=== PATIENT | male | born 1970 | race African-American/Black ===

== ENCOUNTER 2019-12-06 07:26 | Observation (INO) | payer BC, SELFPAY ==
--- NOTE | ~2019-12-06 | CT_ITS ---
EXAMINATION: CT lumbar spine wo jayla EXAM DATE: 12/06/2019 07:59 INDICATION: Fall, low back pain. TECHNIQUE: Spiral CT lumbar spine was performed without contrast. Axial, coronal and sagittal images were reviewed. The dose-length product (DLP) for this examination was 605.92 mGy-cm. The exposure w as tailored according to patient size (auto mA exposure control), and iterative reconstruction (ASIR) was used as additional dose reduction technique. There is no prior study for comparison. FINDINGS: There is moderate to severe L4-5, moderate L5-S1 facet arthropathy, with moderate L4-5 domonique ateral neural foraminal stenosis and moderate left L5-S1 neural foraminal stenosis. Lesser stenosis a t other levels. Mild to moderate L4-5 disc disease, mild at other lumbar levels. There is no evidenc e of acute lumbar fracture or spondylolysis. There is no disc space widening or traumatic vertebral body subluxation suspected. Paraspinal soft tissue is unremarkable. Vertebral body and disc heights are well-maintained. There is 3 mm retrolisthesis L5 on S1. The vertebral bodies are otherwise align ed. 3 mm left calyceal stone. A detailed level by level evaluation of spondylosis can be added as add endum if requested. IMPRESSION: 1. No acute lumbar fracture. 2. [id number] lumbar spondylosis. 3. Left nephrolithiasis. Reviewed, dictated and finalized at location B. M AGENT IMPRESSION: 1. No acute lumbar fracture. 2. [id number]-[id number] lumbar spondylosis. 3. Left nephrolithiasis.
--- NOTE | ~2019-12-06 | XR_ITS ---
EXAMINATION: XR hip LT 2V w AP pelvis DATE: 12/06/2019 08:09 INDICATION: Left hip pain post fall TECHNIQUE: Anteroposterior view of the pelvis and anteroposterior and cross-table lateral views of th e left hip were obtained. COMPARISON: None. FINDINGS: Alignment is normal. No fracture. Bilateral hip joint spaces are normal. Left os acetabulum. Mild to moderate lower lumbar spondylosis. Normal bowel gas pattern. Soft tissues are unremarkable. IMPRESSION: 1. No acute osseous abnormality. Reviewed, dictated and finalized at location A. [facility]
--- NOTE | ~2019-12-06 | CT_ITS ---
EXAMINATION: CT pelvis wo con DATE: 12/06/2019 11:06 INDICATION: Left hip pain. Fall. TECHNIQUE: Computed tomography (CT) of the pelvis was performed without intravenous contrast. Automat ed exposure control and iterative reconstruction technique were employed. The dose-length product was 288.78 mGy-cm. COMPARISON: None FINDINGS: There are no dilated loops of bowel. There is a left inguinal hernia containing fat. There are no pathologically enlarged lymph nodes. There is no free intraperitoneal fluid. There is a lipoma in left adductor arline muscle. Bone alignment is normal. No fracture. There are os acetabuli on the left. There is mild osteoarthritis of the hips. There is moderate lumbar spondylosis. IMPRESSION: 1. Mild osteoarthritis of the hips. 2. Left inguinal hernia containing fat. Reviewed, dictated and finalized at location A. BALL PLAYER
--- NOTE | 2019-12-06 07:43 | ED.ABDPAIN ---
HPI - Abdominal Pain General Chief Complaint: Back Pain/Injury Stated Complaint: fall/leg weakness Time Seen by Provider: 12/06/19 07:33 Source: RN notes reviewed History of Present Illness HPI narrative: Patient presents emergency department from home for a fall. Patient states approximately 6 AM this morning he was getting up to use restroom when he slipped and fell landing on his left side. He states that he has a history of chronic back pain and since that time is had increased back pain in his lower back as well as pain in his left hip. Patient denies striking his head or having loss of consciousness. He denies any other trauma or injury. Patient states he has a history of spinal stenosis and has intermittent numbness in his toes which is unchanged from today. He denies any bowel or bladder incontinence denies any head injury loss of consciousness vision changes chest pain, shortness of breath abdominal pain nausea vomiting or any other symptoms at this time. Related Data Allergies Allergy/AdvReac Type Severity Reaction Status Date / Time No Known Allergies Allergy Verified 12/06/19 08:29 Review of Systems Review of Systems: Narrative: Gen.: Denies fevers or chills Eyes: Denies eye pain or visual change ENT: Denies congestion Respiratory: Denies shortness of breath or cough CV: Denies chest pain or palpitations GI: Denies abdominal pain nausea, emesis or diarrhea denies bowel or bladder incontinence Musculoskeletal: See HPI Neuro: Denies numbness, tingling, weakness or focal weakness Skin: Denies rash Except as documented, all other systems reviewed and negative PMFSH Past Medical History Medical History (Updated 12/06/19 @ 14:16 by Jesus Carey DO) Hypertension Spinal stenosis Social History Social History (Updated 12/06/19 @ 07:44 by Jesus Carey DO) Smoking packs per day: 0.5 Smoking cigarettes per day: 10.0 Gender identity (if verbalized by the patient): Male Exam Narrative: Exam Narrative: APPEARANCE: Well appearing, no apparent distress, well-nourished. HEENT: normocephalic atraumtaic. No facial tenderness EYES: PERRL NECK: Supple. No midline tenderness to palpation. Full range of motion without pain RESPIRATORY: No respiratory distress. Clear to auscultation bilaterally CARDIOVASCULAR: Regular rate and rhythm without murmurs rubs or gallops. ABDOMINAL: Soft, nontender, nondistended, no rebound or guarding MUSCULOSKELETAl: Moves all extremities. No tenderness to palpation of bilateral upper and right lower extremities. No clubbing cyanosis or edema. Tender to palpation over left lateral and anterior hip, pain with any movement of the hip, no tenderness of the left knee or ankle, dorsalis pedis pulse 2+, neurovascular intact Back: No midline thoracic or lumbar tenderness to palpation tender palpation over left paravertebral muscles L3-5 Pelvis: Stable, nontender NEURO: Awake and alert ?3. Follows commands. Speech normal. No focal deficits. Normal pinprick sensation in the bilateral lower extremities SKIN:: Warm, dry. Normal Color Course Course Emergency Course: Several attempts made to get patient up and ambulating unable to ambulate secondary to pain in left lower back. Patient was given pain medication after initial attempt and again still unable to get up and ambulate Discussed Dr. Arroyo presentation work-up he agrees with admission at this time Discussed with patient and family results of workup and diagnosis. Discussed need for admission. Patient and family understand and agree to current treatment plan Vital Signs Vital signs: Vital Signs Temperature 98.1 F 12/06/19 08:23 Pulse Rate 64 12/06/19 08:23 Respiratory Rate 16 12/06/19 08:23 Blood Pressure 147/98 H 12/06/19 08:23 Pulse Oximetry 97 12/06/19 08:23 Temperature 98.1 F 12/06/19 08:23 Pulse Rate 66 12/06/19 10:56 Respiratory Rate 18 12/06/19 10:56 Blood Pressure 116/68 12/06/19 10:5
[2019-12-06 08:23] VITALS: BP 147/98; PULSE 64; RESP 16; TEMP 36.7; O2SAT 97
[2019-12-06] MEDS: MORPHINE SULFATE 4 MG/ML INJ IV PUSH ×3 (08:31→17:11)
--- NOTE | 2019-12-06 09:30 | PC.NURSE ---
Attempt to get patient out of bed to ambulate, states is still too painful to do so. Dr. Carey made aware.
[2019-12-06 10:03] VITALS: BP 134/91; PULSE 54; RESP 18; O2SAT 100
[2019-12-06] MEDS: KETOROLAC 30 MG/ML VIAL (*BKC) IV PUSH (10:03)
--- NOTE | 2019-12-06 10:46 | PC.NURSE ---
Attempt to get patient up out of bed again after toradol, pt unable to ambulate more than two steps without severe pain in his hips. Unsuccessful ambulation. Dr. Carey made aware.
[2019-12-06 10:56] VITALS: BP 116/68; PULSE 66; RESP 18; O2SAT 100
--- NOTE | 2019-12-06 12:34 | PC.NURSE ---
Attempt to ambulate patient after 3rd dose of medications, tales two steps and unable to tolerate pain any further. Dr. Carey made aware.
[2019-12-06 12:42] LABS: Basophils Percent Auto 0.4 % (0.2-1.2); Eosinophils Absolute Auto 0.1 K/mm3 (0-0.3); Eosinophils Percent Auto 1.1 % (0-4.4); Hematocrit 44.5 % (42.0-52.0); Hemoglobin 14.7 g/dL (14.0-18.0); Immature Granulocyte Absolute 0.04 K/mm3 (0.00-0.031); Immature Granulocyte Percent A 0.5 % (0-0.5); Lymphocytes Absolute Auto 2.08 K/mm3 (0.9-3.2); Lymphocytes Percent Auto 28.3 % (18.3-44.2); Mean Corpuscular Hemoglobin 29.6 pg (26-34); Mean Corpuscular Volume 89.5 fl (80-100); Mean Platelet Volume 10.7 fl (7.4-10.4); Monocytes Absolute Auto 0.5 K/mm3 (0.1-0.6); Monocytes Percent Auto 6.1 % (2.6-8.5); Neutrophils Absolute Auto 4.7 K/mm3 (1.3-6.7); Neutrophils Percent Auto 63.6 % (45.5-73.1); Platelet Count Result 286 k/mm3 (150-375); Red Blood Count 4.97 M/mm3 (4.6-6.20); Red Cell Distribution Width 15.3 % (11.5-14.5); White Blood Count 7.3 K/mm3 (4.5-10.0)
[2019-12-06 12:52] LABS: INR 0.9; Prothrombin Time 12.3 Seconds (11.1-14.7)
[2019-12-06 12:53] LABS: Partial Thromboplastin Time 26.9 SECONDS (22.3-36.8)
[2019-12-06 12:54] LABS: Blood Urea Nitrogen 12 mg/dL (9-20); Carbon Dioxide 25 mmol/L (22-30); Chloride 103 mmol/L (98-107); Estimated CRCL calculation 82 ml/min; Estimated Glomerular Filt Rate > 60; Glucose 88 mg/dL (75-110); Potassium 4.4 mmol/L (3.4-5.0); Sodium 138 mmol/L (137-145)
--- NOTE | 2019-12-06 14:12 | PC.NURSE ---
Awaiting return call from the hospitalist regarding admission. Pt updated.
[2019-12-06 14:55] VITALS: BP 123/86; PULSE 53; RESP 16; TEMP 36.6; O2SAT 99
--- NOTE | 2019-12-06 15:39 | ADMGEN ---
This patient, Isaac Metcalf, was admitted to 3 [facility] Surg Room 309-01. Patient/family oriented to hospital policies and general routines including ID bracelet, bed and alarms, visiting hours, pain management, procedures, bathroom and other care routines, personal items, smoking policy, room service/diet, and visiting hours. Valuables list has been completed. Information on how to activate the Rapid Response Team has been discussed. Patient/Family are encouraged to report perceived risks to care and to ask questions if they do not understand what they are told or what they should do.
[2019-12-06 15:44] VITALS: BMI 33.0
[2019-12-06 22:00] VITALS: BP 146/93; PULSE 60; RESP 18; TEMP 36.7; O2SAT 99
--- NOTE | 2019-12-07 01:00 | PM.IMHP ---
H&P: HPI History of Present Illness Chief complaint: Acute on chronic back pain and fall. Narrative: Isaac Metcalf is a pleasant 49-year-old male with chronic low back pain who presented to the emergency department earlier this morning from home for evaluation of acute on chronic back pain and a fall. His medical history is also significant for borderline diabetes, sleep apnea, hypertension, and premature coronary artery disease. He is now on disability due to his back pain, and his pain is typically managed with muscle relaxers, opiates, marijuana, and Lidoderm patches. He moved back to [place] from [place] in the last couple of months, and did establish care with a primary care provider. That provider referred him to a pain management clinic, however he has yet to receive a call back to get a scheduled appointment. At baseline, he has chronic daily pain in the lumbar region, with radicular pain shooting down both legs. It is not unusual for him to have mild numbness and tingling in his toes, and he mentions that his balance is also not great due to these symptoms. Over the years, he has had falls due to that reason. He did not sleep well last night, and was tossing and turning due to his back pain. At approximately 06:00, he woke to use the restroom and at that time developed a severe ?catch? in his back. It was severe enough that it caused him to fall down onto his buttocks with increasing back pain and pelvic pain. There was no head trauma or loss of consciousness in the fall. In the emergency department, he was having a difficult time ambulating due to the pain and in fact lost his balance and had a near fall. At the time my evaluation, he reports feeling better but admittedly his not really gotten out of bed much. Intermittently through the interview he appears to have spasms in the low back. Again, he reiterates that none of these symptoms are new, but they are acutely worse after the fall. He denies focal weakness and paresthesias other than what is listed as above. No bowel or bladder incontinence. No saddle anesthesia. No history of stroke. He denies vertigo. No diplopia, dysarthria, or dysphagia. No chest pain or palpitations. Review of Systems Review of Systems: Narrative: Twelve systems were reviewed with pertinent positives and negatives as per HPI. No fever, chills, or sweats. Notes mild sinus congestion. No flu symptoms. He notes occasional frontal headaches that can be severe, with photophobia. No exertional chest pain or shortness of breath. Except as documented, all other systems were reviewed and are negative. [facility] Past Medical History Medical History (Updated 12/07/19 @ 04:03 by Martha Arreola PA-C) Borderline diabetes Chronic low back pain with bilateral sciatica Coronary artery disease Hypertension Obstructive sleep apnea on CPAP Osteoarthritis Spinal stenosis Tobacco dependence Surgical History Surgical History (Updated 12/07/19 @ 03:58 by Martha Arreola PA-C) History of cardiac catheterization Stents x3. 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 Family History Family History Father Colon cancer Diabetes mellitus Hypertension Mother Diabetes mellitus Hypertension Spinal stenosis Social History Social History (Updated 12/07/19 @ 03:59 by aMrtha Arreola PA-C) Social History: The patient lives in [place] with his significant other, Kenya. He designates Kenya Lyles as his surrogate decision maker and he wishes to be a full code. He has 2 grown children. He is on disability but previously worked on an [employer]. He smokes about 1 pack of cigarettes per day and has for 35+ years. He drinks alcohol in moderation a few times a month. He uses marijuana. Smoking packs per day: 1 Smoking cigarettes per day: 20.
[2019-12-07] MEDS: MORPHINE SULFATE 4 MG/ML INJ IV PUSH ×2 (01:52→08:05)
[2019-12-07 05:52] VITALS: BP 128/81; PULSE 56; RESP 18; TEMP 36.6; O2SAT 97
[2019-12-07] MEDS: VERAPAMIL HCL 180 MG TABLET ER 360 MG PO (08:35)
[2019-12-07] MEDS: LIDOCAINE 5% PATCH 1 PATCH TOPICAL (08:35)
[2019-12-07] MEDS: CYCLOBENZAPRINE HCL 10 MG TABLET 20 MG PO ×2 (08:35→12:26)
[2019-12-07] MEDS: ASPIRIN 81 MG CHEWABLE TABLET PO (08:35)
[2019-12-07] MEDS: LOSARTAN POTASSIUM 50 MG TABLET PO (08:35)
[2019-12-07] MEDS: GABAPENTIN 300 MG CAPSULE 600 MG PO ×2 (08:35→12:26)
[2019-12-07] MEDS: ATORVASTATIN 40 MG TABLET 80 MG PO (08:35)
[2019-12-07 14:00] VITALS: BP 127/81; PULSE 70; RESP 16; TEMP 36.4; O2SAT 99
--- NOTE | 2019-12-07 14:12 | PM.IMPN ---
Progress Note: A&P Assessment and Plan (1) Acute exacerbation of chronic low back pain: Code(s): M54.5 - Low back pain; G89.29 - Other chronic pain Status: Acute Assessment and Plan: Worse after fall yesterday morning. Currently controlled with Lidoderm patch, cyclobenzaprine and p.r.n. oxycodone. Has been seen by physical therapy. Will discharge home with home health. Encouraged patient to follow-up with his primary physician to help expedite pain management referral. (2) Fall from ground level: Code(s): W18.30XA - Fall on same level, unspecified, initial encounter Status: Acute Assessment and Plan: Pain control as noted above. Will continue therapy with home health. (3) Hypertension: Qualifiers: Hypertension type: essential hypertension Qualified Code(s): I10 - Essential (primary) hypertension Code(s): I10 - Essential (primary) hypertension Status: Acute Assessment and Plan: Blood pressure reviewed on 12/07/2019 and acceptable. Continue verapamil and losartan. (4) Obstructive sleep apnea on CPAP: Code(s): G47.33 - Obstructive sleep apnea (adult) (pediatric); Z99.89 - Dependence on other enabling machines and devices Status: Acute Assessment and Plan: Stable. Continue CPAP. (5) Tobacco dependence: Code(s): F17.200 - Nicotine dependence, unspecified, uncomplicated Status: Acute Assessment and Plan: Cessation encouraged. Nicotine patch declined. (6) DVT prophylaxis: Code(s): Z29.9 - Encounter for prophylactic measures, unspecified Status: Acute Assessment and Plan: Up as tolerated. Time Spent With Patient Time with patient: 15 - 25 minutes Subjective Date/time seen: 12/07/19 14:12 Interval history: Date of Service: 12/07/2019. Admitted with acute exacerbation of chronic back pain after fall. Patient is written seen by physical therapy. Reports pain is controlled at the present time has been referred to pain management as an outpatient but had not yet been able to make an appointment. Pain is in the lower back extending down both legs. Will also get numbness in the feet and hands. No chest pain or shortness of breath. Ready to go home. Review of Systems Constitutional: Constitutional: Denies chills and Denies fever(s) ENT: Denies nasal discharge Cardiovascular: Cardiovascular: Denies chest pain Respiratory: Respiratory: Denies dyspnea Gastrointestinal: Gastrointestinal: Denies abdominal pain, Denies nausea and Denies vomiting Genitourinary: Genitourinary: Reports no additional male genitourinary complaints Musculoskeletal: Musculoskeletal: Reports back pain (low back extending down legs) Integumentary/Breasts: Skin/Breast: Denies rash Neurologic: Denies headache(s) and Reports numbness (hands and feet) Psychiatric: Psychiatric: Denies anxiety, Denies confusion and Denies depression Exam Narrative: Exam Narrative: Awake and alert. Const: General: no acute distress HENMT: Mouth: Yes moist mucous membranes Neck: Neck: supple Lymphatic: lymphadenopathy not noted Resp: Auscultation: clear to auscultation bilaterally, no rales and no wheezes Cardio: Rate: regular rate Rhythm: regular rhythm GI: Inspection: non-distended GI Palp: Yes Soft to palpation and No Tenderness to palpation present (GI) Auscultation: normal bowel sounds Skin: General skin exam: no rashes or lesions noted Neuro: Cognition (Neuro): normal cognition Speech: normal speech Other: Atrophy noted of lower extremity musculature Extrem: General: no edema Psych: Mental Status: mental status grossly normal Affect: normal affect Objective Data Vital Signs Vital Signs: Vital Signs - 24 hr 12/06/19 14:55 12/06/19 22:00 12/07/19 05:52 Temperature 97.8 F 98.1 F 97.9 F Pulse Rate 53 L 60 56 L Respiratory Rate 16 18 18 Blood Pressure 123/86 146/93 H 128/81 Pulse Oximetry 99 99 97
--- NOTE | 2019-12-07 20:26 | PM.DS ---
DS: Diagnosis Admitting Diagnosis Admitting Diagnosis: Low back pain Discharge Diagnosis (1) Acute exacerbation of chronic low back pain: Code(s): M54.5 - Low back pain; G89.29 - Other chronic pain Status: Acute (2) Fall from ground level: Code(s): W18.30XA - Fall on same level, unspecified, initial encounter Status: Acute (3) Hypertension: Qualifiers: Hypertension type: essential hypertension Qualified Code(s): I10 - Essential (primary) hypertension Code(s): I10 - Essential (primary) hypertension Status: Acute (4) Obstructive sleep apnea on CPAP: Code(s): G47.33 - Obstructive sleep apnea (adult) (pediatric); Z99.89 - Dependence on other enabling machines and devices Status: Acute (5) Tobacco dependence: Code(s): F17.200 - Nicotine dependence, unspecified, uncomplicated Status: Acute DS: Summary Hospital Course Reason for hospitalization: Fall with increased low back pain. Hospital Course: Date of Service of Discharge: December 07, 2019. History of Present Illness: Patient is a 49-year-old general with chronic low back pain, hypertension, sleep apnea, coronary artery disease and borderline diabetes who presented to the emergency room for evaluation of acute on chronic back pain after a fall. Patient is apparently disabled due to his back pain. Pain is typically managed with muscle relaxers, opiates, marijuana and Lidoderm patches. He recently moved back to [place] from [place] in the past few months. He was able to establish with a primary care physician and referred to pain management but has not yet been able to schedule an appointment. Patient reports he does have pain starting in the lumbar region and shooting down both legs. He will get numbness in his feet as well as his hands. On the night prior to presentation, he did not sleep well as he was tossing and turning due to his back pain. At approximately 6:00 a.m. on the morning of admission he awaken to use the restroom. At that time he developed a severe ?catch? in his back. This caused him to fall down onto his buttocks with increasing pain in the back and pelvic region. No head trauma or loss of consciousness. No chest pain or shortness of breath. In the emergency room, he had difficulty ambulating due to the pain losing his balance within near fall. Imaging with no acute problems noted. However, with ambulatory dysfunction, he was placed in observation for further evaluation and treatment. Course in Hospital: Patient was admitted to the medical floor where he remained for the duration of his stay. He was continued on home medication including oxycodone, cyclobenzaprine, Lidoderm patches and tramadol for his back pain. Pain was acceptably controlled with this management. He was seen by physical therapy with recommendation for home health. Patient regarding need to follow-up on referral to pain management which patient plans to do. Blood pressure was monitored throughout his stay in acceptable on home verapamil and losartan. He was continued on CPAP for obstructive sleep apnea with no acute issues. He was counseled on smoking cessation. Patient did not have any other acute problems while in hospital. With the patient reasonably controlled and plan for physical therapy through home health, he was discharged home on the afternoon of December 07, 2019. Status at Discharge Cognitive/behavioral status at discharge: Stable. Functional status at discharge: uses cane/walker Overall status at discharge: patient is progressing back to baseline Time Spent with Patient Time attestation: Total time spent providing and/or coordinating discharge services: 40 minutes. Time spent: Greater than 30 minutes Exam Narrative: Exam Narrative: Vital Signs Temp Pulse Resp BP Pulse Ox 98.1 F 64 16
== END 2019-12-07 15:30 | disposition home health service (06) ==
LOC: ANHED 14:17 → ANH3MEDSUR 15:48
PROVIDERS: Admitting Provider Internal Medicine; Emergency Provider Emergency Medicine; PCP Family Medicine; Visit Provider Hospitalist
DX: M54.42 Lumbago with sciatica, left side (principal); M54.41 Lumbago with sciatica, right side; W01.0XXA Fall on same level from slipping, tripping and stumbling without subsequent striking against object, initial encounter; Y93.E8 Activity, other personal hygiene; G89.29 Other chronic pain; I10 Essential (primary) hypertension; G47.33 Obstructive sleep apnea (adult) (pediatric); Z99.89 Dependence on other enabling machines and devices; F17.210 Nicotine dependence, cigarettes, uncomplicated; R26.81 Unsteadiness on feet; M48.00 Spinal stenosis, site unspecified; I25.10 Atherosclerotic heart disease of native coronary artery without angina pectoris; R73.03 Prediabetes; M19.90 Unspecified osteoarthritis, unspecified site; Z79.82 Long term (current) use of aspirin; Z79.899 Other long term (current) drug therapy; Z86.79 Personal history of other diseases of the circulatory system; Z98.890 Other specified postprocedural states; Z91.81 History of falling; Z95.5 Presence of coronary angioplasty implant and graft
CPT/HCPCS: 36415; 72131; 72192; 73502; 73521; 80048; 85025; 85610; 85730; 96374; 96375; 96376; 97161; 99285; A9270; G0378; G0379; J1885; J2270

== ENCOUNTER 2020-11-30 17:10 | Emergency (ER) | payer BC, SELFPAY ==
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
[2020-11-30 17:34] VITALS: BP 143/104; PULSE 90; RESP 16; TEMP 36.6; O2SAT 98
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
[2020-11-30] MEDS: HYDROcodone/acetaminophen (*CRX) 5-325 MG TABLET 1 TAB PO (19:06)
[2020-11-30] MEDS: diazePAM (*CRX) 5 MG TABLET PO (19:06)
--- NOTE | 2020-11-30 19:07 | PC.NURSE ---
PT REFUSED IV. PT EDUCATION ON NEED FOR IV FOR PROCEDURE. PT STATES HIS STOMACH DOESNT HURT THAT BAD AND DOES NOT WANT IV. DISCUSSED RISKS. PT VERBALIZES UNDERSTANDING. NOTIFIED.
== END 2020-11-30 20:25 | disposition home or self-care (01) ==
PROVIDERS: Emergency Provider Emergency Medicine; PCP Family Medicine
DX: S16.1XXA Strain of muscle, fascia and tendon at neck level, initial encounter (principal); S39.012A Strain of muscle, fascia and tendon of lower back, initial encounter; S46.911A Strain of unspecified muscle, fascia and tendon at shoulder and upper arm level, right arm, initial encounter; S00.03XA Contusion of scalp, initial encounter; R73.03 Prediabetes; I25.10 Atherosclerotic heart disease of native coronary artery without angina pectoris; I10 Essential (primary) hypertension; G47.33 Obstructive sleep apnea (adult) (pediatric); M19.90 Unspecified osteoarthritis, unspecified site; Z95.5 Presence of coronary angioplasty implant and graft; Z79.84 Long term (current) use of oral hypoglycemic drugs; Z79.82 Long term (current) use of aspirin; F17.210 Nicotine dependence, cigarettes, uncomplicated; V53.6XXA Passenger in pick-up truck or van injured in collision with car, pick-up truck or van in traffic accident, initial encounter
CPT/HCPCS: 70450; 72125; 72131; 73030; 99284; A9270

== ENCOUNTER 2021-02-08 11:25 | Emergency (ER) | payer BC, SELFPAY ==
--- NOTE | ~2021-02-08 | XR_ITS ---
EXAMINATION: XR lumbar spine 2-3V DATE: 02/08/2021 12:43 INDICATION: Low back pain. Fall. TECHNIQUE: 3 views of lumbar spine were obtained. COMPARISON: Lumbar spine radiographs 08/15/2019 FINDINGS: There is 3 degrees dextrocurvature of lumbar spine. Vertebral body heights are normal. Ther e is mildly decreased disc height at L4-L5. There are endplate osteophytes at multiple levels. There is severe facet joint osteoarthritis in lower lumbar spine. IMPRESSION: 1. Mild lumbar spondylosis. Reviewed, dictated and finalized at location A. IMPRESSION: 1. Mild lumbar spondylosis.
--- NOTE | ~2021-02-08 | XR_ITS ---
EXAMINATION: XR hip LT min 2V DATE: 02/08/2021 12:43 INDICATION: Left hip pain. Fall. TECHNIQUE: 2 views of left hip were obtained. COMPARISON: Left hip radiographs 12/06/2019, CT 12/06/2019 FINDINGS: Bone alignment is normal. No fracture. There is mild osteoarthritis of the hips. IMPRESSION: 1. Mild osteoarthritis of the hips. Reviewed, dictated and finalized at location A.
[2021-02-08 12:08] VITALS: BP 136/87; PULSE 87; RESP 20; TEMP 36.6; O2SAT 98
--- NOTE | 2021-02-08 14:03 | ED.GENADULT ---
HPI - General Adult General Chief complaint: Fall Stated complaint: fell, L hip Pain Time Seen by Provider: 02/08/21 12:32 Source: patient Mode of arrival: ambulatory Limitations: no limitations History of Present Illness HPI narrative: Patient is a 51-year-old male who presents to emergency department for evaluation of hip and back pain status post slipping and falling at home patient presents noting aching pain denies head injury syncope loss of consciousness notes history of chronic back pain as narcotics and muscle relaxers that he takes for this patient denies illness or other complaints and on arrival does not appear distressed or rhonchi Related Data Home Medications Medication Instructions Recorded Confirmed albuterol sulfate [Proventil HFA] 90 mcg INHALATION Q6H PRN 12/06/19 12/07/19 aspirin 81 mg PO DAILY 12/06/19 12/07/19 atorvastatin 80 mg PO DAILY 12/06/19 12/07/19 budesonide-formoterol [Symbicort] 2 puff INHALATION Q12H PRN 12/06/19 12/07/19 ibuprofen 400 mg PO TID PRN 12/06/19 12/07/19 losartan 50 mg PO DAILY 12/06/19 12/07/19 metformin 500 mg PO DAILY 12/06/19 12/07/19 nitroglycerin 0.4 mg SUBLINGUAL PRN PRN 12/06/19 12/07/19 verapamil 360 mg PO DAILY 12/06/19 12/07/19 Allergies Allergy/AdvReac Type Severity Reaction Status Date / Time No Known Allergies Allergy Verified 11/30/20 17:59 Review of Systems Review of Systems: All systems reviewed & are unremarkable except as noted in HPI and below PMFSH Past Medical History Medical History Borderline diabetes Chronic low back pain with bilateral sciatica Coronary artery disease Hypertension Obstructive sleep apnea on CPAP Osteoarthritis Spinal stenosis Tobacco dependence Surgical History Surgical History History of cardiac catheterization Stents x3. 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 Family History Family History Father Colon cancer Diabetes mellitus Hypertension Mother Diabetes mellitus Hypertension Spinal stenosis Social History Social History Social History: The patient lives in [place] with his significant other, Kenya. He designates Kenya Lyles as his surrogate decision maker and he wishes to be a full code. He has 2 grown children. 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 He smokes about 1 pack of cigarettes per day and has for 35+ years. He drinks alcohol in moderation a few times a month. He uses marijuana. Smoking packs per day: 1 Smoking cigarettes per day: 20.0 Years smoked: 35 Smoking pack-years: 35.00 Gender identity (if verbalized by the patient): Male Exam Narrative: Exam Narrative: GENERAL: Well-appearing, well-nourished, and in no acute distress. HEAD: Normocephalic, atraumatic. EYES: PERRLA and EOMI. ENT: Nares clear, no rhinorrhea or epistaxis. Mucous membranes moist. CHEST: Clear to auscultation. No respiratory distress. No wheezes rales or rhonchi HEART: Regular rate and rhythm. No murmur heard. Normal peripheral pulses. EXTREMITIES: Normal range of motion. No edema. Tenderness of the left hip and lumbar spine no deformities noted SKIN: Warm, dry, no rash. NEURO: No focal deficits. Alert and oriented x3. Cranial nerves II through XII grossly intact. Normal speech and gait PSYCH: Normal mood and affect. Course Course Emergency Course: Patient in the room no distress aware of case findings treatment plan and diagnosis agreeing to follow-up as instructed or to return if symptoms worsen or concerns Vital Signs Vital signs: Vital Signs Temperature 97.9 F 02/08/21 12:08 Pulse Rate 87 02/08/21 12:08 Respiratory Rate 20 02/08/21 12:08 B
== END 2021-02-08 14:52 | disposition home or self-care (01) ==
PROVIDERS: Emergency Provider Emergency Medicine; PCP Physician Assistant
DX: M25.552 Pain in left hip (principal); S39.92XA Unspecified injury of lower back, initial encounter; I25.10 Atherosclerotic heart disease of native coronary artery without angina pectoris; R73.03 Prediabetes; I10 Essential (primary) hypertension; G47.33 Obstructive sleep apnea (adult) (pediatric); Z95.5 Presence of coronary angioplasty implant and graft; F17.210 Nicotine dependence, cigarettes, uncomplicated; Z79.84 Long term (current) use of oral hypoglycemic drugs; Z79.82 Long term (current) use of aspirin; M16.0 Bilateral primary osteoarthritis of hip; M47.816 Spondylosis without myelopathy or radiculopathy, lumbar region; W01.0XXA Fall on same level from slipping, tripping and stumbling without subsequent striking against object, initial encounter
CPT/HCPCS: 72100; 73502; 99284

== ENCOUNTER 2021-07-15 10:59 | Emergency (ER) | payer BC, SELFPAY ==
[2021-07-15 11:07] VITALS: BP 153/93; PULSE 84; RESP 14; TEMP 36.9; O2SAT 99
--- NOTE | 2021-07-15 11:53 | ED.GENADULT ---
HPI - General Adult General Chief complaint: Extremity Problem,Nontraumatic Stated complaint: L Foot Pain Time Seen by Provider: 07/15/21 11:17 History of Present Illness HPI narrative: Patient is a 51-year-old male who presents ER with concerns regarding the fourth webspace on the left foot. Has developed a fissure and white discoloration to the skin. No redness or fevers or chills or sweats. No real itching or burning or pain. Has been applying frankincense oil without improvement. No known trauma. Related Data Home Medications Medication Instructions Recorded Confirmed albuterol sulfate [Proventil HFA] 90 mcg INHALATION Q6H PRN 12/06/19 12/07/19 aspirin 81 mg PO DAILY 12/06/19 12/07/19 atorvastatin 80 mg PO DAILY 12/06/19 12/07/19 budesonide-formoterol [Symbicort] 2 puff INHALATION Q12H PRN 12/06/19 12/07/19 ibuprofen 400 mg PO TID PRN 12/06/19 12/07/19 losartan 50 mg PO DAILY 12/06/19 12/07/19 metformin 500 mg PO DAILY 12/06/19 12/07/19 nitroglycerin 0.4 mg SUBLINGUAL PRN PRN 12/06/19 12/07/19 verapamil 360 mg PO DAILY 12/06/19 12/07/19 Allergies Allergy/AdvReac Type Severity Reaction Status Date / Time No Known Allergies Allergy Verified 11/30/20 17:59 Review of Systems Constitutional: Constitutional: Denies chills, Denies fever(s) and Denies weakness Musculoskeletal: Musculoskeletal: Denies arthralgias, Denies joint swelling and Denies muscle cramps Integumentary/Breasts: Skin/Breast: Denies pruritus, Denies erythema, Denies rash and Reports skin ulcer PMFSH Past Medical History Medical History Borderline diabetes Chronic low back pain with bilateral sciatica Coronary artery disease Hypertension Obstructive sleep apnea on CPAP Osteoarthritis Spinal stenosis Tobacco dependence Surgical History Surgical History History of cardiac catheterization Stents x3. 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 Family History Family History Father Colon cancer Diabetes mellitus Hypertension Mother Diabetes mellitus Hypertension Spinal stenosis Social History Social History Social History: The patient lives in [place] with his significant other, [place]. He designates Kenya Lyles as his surrogate decision maker and he wishes to be a full code. He has 2 grown children. He is on disability but previously worked on an [employer]. He smokes about 1 pack of cigarettes per day and has for 35+ years. He drinks alcohol in moderation a few times a month. He uses marijuana. Smoking packs per day: 1 Smoking cigarettes per day: 20.0 Years smoked: 35 Smoking pack-years: 35.00 Gender identity (if verbalized by the patient): Male Exam Narrative: GENERAL: Well-appearing, well-nourished, and in no acute distress. HEAD: Normocephalic, atraumatic. EXTREMITIES: Normal range of motion. No edema. SKIN: Warm, dry. Small fissure left fourth webspace of the foot, does not extend into muscle or bone. No purulent drainage or black eschar. No cellulitis. NEURO: Alert and oriented x3. PSYCH: Normal mood and affect. Course Course Emergency Course: Seems consistent with athlete's foot. Discharged with antifungals. Educated that he needs follow-up with PCP for further evaluation of wound. Vital Signs Vital signs: Vital Signs Temperature 98.4 F 07/15/21 11:07 Pulse Rate 84 07/15/21 11:07 Respiratory Rate 14 07/15/21 11:07 Blood Pressure 153/93 H 07/15/21 11:07 Pulse Oximetry 99 07/15/21 11:07 Temperature 98.4 F 07/15/21 11:07 Pulse Rate 84 07/15/21 11:07 Respiratory Rate 14 07/15/21 11:07 Blood Pressure 153/93 H 07/15/21 11:07 Pulse Oximetry 99 07/15
== END 2021-07-15 12:15 | disposition home or self-care (01) ==
PROVIDERS: Emergency Provider Emergency Medicine; PCP Physician Assistant
DX: B35.3 Tinea pedis (principal); R73.03 Prediabetes; I25.10 Atherosclerotic heart disease of native coronary artery without angina pectoris; I10 Essential (primary) hypertension; G47.33 Obstructive sleep apnea (adult) (pediatric); M19.90 Unspecified osteoarthritis, unspecified site; F17.210 Nicotine dependence, cigarettes, uncomplicated; Z79.84 Long term (current) use of oral hypoglycemic drugs; Z79.82 Long term (current) use of aspirin
CPT/HCPCS: 99283

== ENCOUNTER 2021-11-04 10:56 | Emergency (ER) | payer BC, SELFPAY ==
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
[2021-11-04 11:00] VITALS: BP 115/76; PULSE 86; RESP 16; TEMP 36.6; O2SAT 99
--- NOTE | 2021-11-04 11:02 | ECG_ITS ---
Measurements Intervals [place] Rate: 76 P: 67 IN: 179 QRS: 31 QRSD: 101 T: 72 QT: 405 QTc: 456 Interpretive Statements SINUS RHYTHM DELAYED PRECORDIAL R/S TRANSITION MINIMAL Q WAVES- INFERIOR LEADS T WAVE ABNORMALITY IN ANTERIOR LEADS- CONSIDER ISCHEMIA ABNORMAL ECG Electronically Signed On 11-04-2021 11:45:17 LITHOGRAPH OPERATOR by Nate Larsen D.O.
[2021-11-04 11:22] VITALS: BP 120/72; PULSE 86; RESP 20; TEMP 36.6; O2SAT 99
--- NOTE | 2021-11-04 11:37 | ED.GENADULT ---
HPI - General Adult General Chief complaint: Upper Respiratory Infection Stated complaint: keep falling pain in legs Time Seen by Provider: 11/04/21 11:31 Source: patient Mode of arrival: ambulatory Limitations: no limitations History of Present Illness HPI narrative: Patient is a 51-year-old male complaining of generalized weakness, body aches, fatigue, cough, chills, fever that started 2 days ago. Patient states that he has been feeling very weak for the past 2 days that he fell a few times. Patient states that he might of hit his head yesterday but denies any loss of consciousness. Patient denies any neck pain, chest pain, shortness of breath, abdominal pain, nausea, vomiting or diarrhea. Related Data Home Medications Medication Instructions Recorded Confirmed albuterol sulfate [Proventil HFA] 90 mcg INHALATION Q6H PRN 12/06/19 12/07/19 aspirin 81 mg PO DAILY 12/06/19 12/07/19 atorvastatin 80 mg PO DAILY 12/06/19 12/07/19 budesonide-formoterol [Symbicort] 2 puff INHALATION Q12H PRN 12/06/19 12/07/19 ibuprofen 400 mg PO TID PRN 12/06/19 12/07/19 losartan 50 mg PO DAILY 12/06/19 12/07/19 metformin 500 mg PO DAILY 12/06/19 12/07/19 nitroglycerin 0.4 mg SUBLINGUAL PRN PRN 12/06/19 12/07/19 verapamil 360 mg PO DAILY 12/06/19 12/07/19 Allergies Allergy/AdvReac Type Severity Reaction Status Date / Time No Known Allergies Allergy Verified 11/04/21 11:24 Review of Systems Review of Systems: All systems reviewed & are unremarkable except as noted in HPI and below Constitutional: Constitutional: Denies excessive sweating, Denies headache(s), Denies lethargy and Denies weight loss Eyes: Eyes: Denies blurry vision, Denies change in vision and Denies loss of vision ENT: Denies dizziness, Denies ear discharge, Denies headache(s), Denies lip swelling, Denies epistaxis, Denies nasal congestion, Denies neck pain, Denies throat swelling and Denies tongue swelling Cardiovascular: Cardiovascular: Denies chest pain, Denies chest pain at rest, Denies chest pain with activity, Denies diaphoresis, Denies rapid heart rate, Denies edema, Denies irregular heart rhythm, Denies lightheadedness, Denies palpitations, Denies dyspnea and Denies dyspnea on exertion Respiratory: Respiratory: Denies chest congestion, Denies hemoptysis, Denies dyspnea and Denies dyspnea on exertion Gastrointestinal: Gastrointestinal: Denies abdominal pain, Denies melena, Denies hematochezia, Denies diarrhea, Denies nausea, Denies vomiting and Denies hematemesis Musculoskeletal: Musculoskeletal: Denies abnormal gait, Denies deformity, Denies joint swelling, Denies limited range of motion, Denies neck pain and Denies numbness Neurologic: Denies Abnormal speech present, Denies abnormal gait, Denies confusion, Denies dizziness, Denies headache(s), Denies focal weakness, Denies loss of vision, Denies numbness, Denies Other visual disturbances and Denies Sensory deficit (Neuro) Psychiatric: Psychiatric: Denies confusion, Denies depression, Denies auditory hallucinations, Denies homicidal ideation and Denies suicidal ideation Endocrine: Endocrine: Denies cold intolerance, Denies excessive sweating, Denies fatigue, Denies heat intolerance and Denies palpitations Hematologic/Lymphatic: Hematologic/Lymphatic: Denies easy bleeding and Denies easy bruising Allergic/Immunologic: Allergic/Immunologic: Denies lip swelling, Denies throat swelling and Denies tongue swelling PMFSH Past Medical History Medical History Borderline diabetes Chronic low back pain with bilateral sciatica Coronary artery disease Hypertension Obstructive sleep apnea on CPAP Osteoarthritis Spinal stenosis Tobacco dependence Surgical History Surgical History History of cardiac catheterization Stents x3. History of inguinal herniorrhaphy History of vascular surgery Vascular plug for fistula bet
[2021-11-04] MEDS: SODIUM CHLORIDE 0.9% IV 1,000 ML 999 ML IV CONT (11:56)
[2021-11-04] MEDS: KETOROLAC 30 MG/ML VIAL (*BKC) IV PUSH (11:56)
[2021-11-04 11:57] LABS: Basophils Percent Auto 0.3 % (0.2-1.2); Eosinophils Percent Auto 0.3 % (0-4.4); Hematocrit 39.6 % (42.0-52.0); Hemoglobin 13.6 g/dL (14.0-18.0); Immature Granulocyte Absolute 0.07 K/mm3 (0.00-0.031); Immature Granulocyte Percent A 0.8 % (0-0.5); Lymphocytes Absolute Auto 1.29 K/mm3 (0.9-3.2); Lymphocytes Percent Auto 14.5 % (18.3-44.2); Mean Corpuscular HGB Conc 34.3 g/dl (32-36); Mean Corpuscular Volume 87.4 fl (80-100); Mean Platelet Volume 9.6 fl (7.4-10.4); Monocytes Absolute Auto 0.9 K/mm3 (0.1-0.6); Monocytes Percent Auto 10.2 % (2.6-8.5); Neutrophils Absolute Auto 6.6 K/mm3 (1.3-6.7); Neutrophils Percent Auto 73.9 % (45.5-73.1); Platelet Count Result 208 k/mm3 (150-375); Red Blood Count 4.53 M/mm3 (4.6-6.20); Red Cell Distribution Width 15.5 % (11.5-14.5); White Blood Count 8.9 K/mm3 (4.5-10.0)
[2021-11-04 12:06] LABS: Alanine Aminotransferase 18 U/L (4-50); Albumin Level 3.7 g/dL (3.5-5.1); Alkaline Phosphatase 51 U/L (38-126); Anion Gap 8 mmol/L (8-16); Aspartate Amino Transferase 19 U/L (17-59); Bilirubin,Total 0.3 mg/dL (0.2-1.3); Blood Urea Nitrogen 7 mg/dL (9-20); Calcium 8.8 mg/dL (8.4-10.2); Carbon Dioxide 23 mmol/L (22-30); Chloride 103 mmol/L (98-107); Estimated CRCL calculation 63 ml/min; Estimated Glomerular Filt Rate > 60; Glucose 123 mg/dL (65-110); Potassium 3.4 mmol/L (3.4-5.0); Sodium 134 mmol/L (137-145)
[2021-11-04 12:17] LABS: Troponin I < 0.012 ng/mL (0.000-0.034)
[2021-11-04 14:15] VITALS: BP 128/62; PULSE 73; RESP 16; O2SAT 99
== END 2021-11-04 14:18 | disposition home or self-care (01) ==
PROVIDERS: Emergency Provider Emergency Medicine; PCP Physician Assistant
DX: B34.9 Viral infection, unspecified (principal); R53.1 Weakness; R73.03 Prediabetes; I25.10 Atherosclerotic heart disease of native coronary artery without angina pectoris; I10 Essential (primary) hypertension; G47.33 Obstructive sleep apnea (adult) (pediatric); M19.90 Unspecified osteoarthritis, unspecified site; F17.210 Nicotine dependence, cigarettes, uncomplicated; Z79.82 Long term (current) use of aspirin; Z79.84 Long term (current) use of oral hypoglycemic drugs; R94.31 Abnormal electrocardiogram [ECG] [EKG]
CPT/HCPCS: 36415; 70450; 80053; 84484; 85025; 93005; 96361; 96374; 99284; J1885; J7030

== ENCOUNTER 2022-04-09 09:31 | Outpatient (CLI) | payer BC, SELFPAY ==
--- NOTE | ~2022-04-09 | MR_ITS ---
EXAMINATION: MR lumbar spine wo con DATE: 04/09/2022 10:28 INDICATION: Lumbar spondylosis with myelopathy. TECHNIQUE: Magnetic resonance imaging (MRI) of the lumbar spine was performed without intravenous con trast. Sequences included sagittal T2-weighted FSE, sagittal T2-weighted FS FSE, sagittal T1-weighted FSE, and axial T2-weighted FSE. COMPARISON: Lumbar spine radiographs 02/08/2021, CT 11/30/2020 FINDINGS: There is 4 degrees dextrocurvature of lumbar spine. There is 3 mm anterolisthesis of L4 on L5. Vertebral body heights are normal. There is mildly decreased disc height at L3-L4 and L4-L5. Ther e is ligamentum flavum hypertrophy at the disc levels from L2-L3 through L4-L5. The distal spinal cor d signal intensity is normal. The conus medullaris is at L1-L2. The following disc levels are specifi tristan discussed: L1-L2: The disc does not extend beyond the endplate margin. There is mild bilateral facet joint osteo arthritis. There is no neural foraminal stenosis. There is no central canal stenosis. L2-L3: The disc is bulging and has an annular fissure. There is moderate right and mild left facet kiara int osteoarthritis. There is mild bilateral neural foraminal stenosis. There is mild central canal st enosis. L3-L4: The disc is bulging and has an annular fissure. There is severe bilateral facet joint osteoart hritis. There is mild right and moderate left neural foraminal stenosis. There is mild central canal stenosis. L4-L5: The disc is bulging and has an annular fissure. There is severe bilateral facet joint osteoart hritis. There is moderate right and mild left neural foraminal stenosis. There is mild central canal stenosis. L5-S1: The disc does not extend beyond the endplate margin. There is severe bilateral facet joint ost eoarthritis. There is mild left neural foraminal stenosis. There is no central canal stenosis. IMPRESSION: 1. Moderate lumbar spondylosis. Reviewed, dictated and finalized at location B.
== END 2022-04-09 09:32 | disposition home or self-care (01) ==
PROVIDERS: PCP Physician Assistant; Visit Provider Physician Assistant
DX: M47.16 Other spondylosis with myelopathy, lumbar region (principal)
CPT/HCPCS: 72148